=== PATIENT | male | born 1990 | race Caucasian/White ===

== ENCOUNTER 2025-08-22 13:10 | Outpatient (CLI) | payer OTHER, SELFPAY ==
--- NOTE | ~2025-08-22 | XR_ITS ---
EXAMINATION: XR ribs RT 2V, 08/22/2025 13:23 CDT HISTORY: Low back pain, unspecified, Pleurodynia COMPARISON: No comparisons available. Findings: No acute fracture or malalignment. No significant degenerative changes. Soft tissues unremarkable. Impression: No acute fracture or malalignment. Reviewed, dictated and finalized at location P. Impression: No acute fracture or malalignment.
--- NOTE | ~2025-08-22 | XR_ITS ---
XR thoracic spine 3V Indication: Low back pain, unspecified, Pleurodynia Comparison: None Findings: Mild dextroconvex scoliosis. No fracture or subluxation. The disc heights are intact. Soft tissues unremarkable Impression: No acute abnormality. Reviewed, dictated and finalized at location P. Impression: No acute abnormality.
--- NOTE | ~2025-08-22 | XR_ITS ---
XR lumbar spine 2-3V Indication: Low back pain, unspecified, Pleurodynia Comparison: None Findings: The vertebral heights are intact. No fracture or subluxation. The disc heights are intact. Soft tissues unremarkable Impression: No acute abnormality. Reviewed, dictated and finalized at location P. Impression: No acute abnormality.
== END 2025-08-22 13:11 | disposition home or self-care (01) ==
LOC: MICIMG 13:16
DX: M54.50 Low back pain, unspecified (principal); R07.81 Pleurodynia
CPT/HCPCS: 71100; 72072; 72100